=== PATIENT | female | born 1990 | race Asian ===

== ENCOUNTER 2017-09-22 17:27 | Emergency (ER) | payer MEDICAID ==
[2017-09-22 17:33] VITALS: BP 154/106
--- NOTE | 2017-09-22 18:06 | ER Document Report ---
ED General - General Chief Complaint: Facial Swelling Stated Complaint: FACIAL SWELLING Time Seen by Provider: 09/22/17 17:53 Notes: Patient presents with itchy red rash that is on the left side of her forehead right side of her lower facial cheek and right upper extremity. She states that last night she slept on her 90s mattress which she normally does not sleep on it and awoke with this rash. She took Benadryl today. With improvement in the itchiness of her rash. No stridor no tongue or lip swelling and no problems swallowing. No recent fevers or illnesses. TRAVEL OUTSIDE OF THE [place] IN LAST 30 DAYS: No - Related Data Allergies/Adverse Reactions: No Known Allergies Allergy (Verified 09/12/13 12:30) Past Medical History - Social History Smoking Status: Never Smoker Family History: Reviewed & Not Pertinent Patient has suicidal ideation: No Patient has homicidal ideation: No - Past Medical History Cardiac Medical History: Reports: Hx Hypercholesterolemia Neurological Medical History: Reports: Hx Seizures Endocrine Medical History: Reports: Hx Diabetes Mellitus Type 2 - ON METFORMIN NOW Renal/ Medical History: Denies: Hx Peritoneal Dialysis Malignancy Medical History: Reports: Hx Brain Cancer Past Surgical History: Reports: Hx Neurologic Surgery - VNS shunt; Brain tumor Review of Systems - Review of Systems Constitutional: No symptoms reported EENT: No symptoms reported Cardiovascular: No symptoms reported Respiratory: No symptoms reported Gastrointestinal: No symptoms reported Genitourinary: No symptoms reported Female Genitourinary: No symptoms reported Musculoskeletal: No symptoms reported Skin: Rash Hematologic/Lymphatic: No symptoms reported Neurological/Psychological: No symptoms reported Physical Exam - Vital signs Vitals: Temp Pulse Resp BP Pulse Ox 98.2 F 121 H 14 154/106 H 94 09/22/17 17:33 09/22/17 17:33 09/22/17 17:33 09/22/17 17:33 09/22/17 17:33 - General General appearance: Appears well, Alert - HEENT Head: Normocephalic - No petechia and palate normal posterior oropharynx no cervical lymphadenopathy no brandon angina, Atraumatic Eyes: Normal Conjunctiva: Normal Extraocular movements intact: Yes Pupils: PERRL - Respiratory Respiratory status: No respiratory distress Chest status: Nontender Breath sounds: Normal - Cardiovascular Rhythm: Tachycardia Heart sounds: Normal auscultation Murmur: No - Abdominal Inspection: Normal - Skin Skin Temperature: Warm Skin Moisture: Dry - Small areas of urticaria left forehead and right facial cheek and right upper extremity that is blanchable Course - Re-evaluation Re-evalutation: 09/22/17 18:04 Overall, patient is well-appearing in no acute distress. Pulse 108 manual, slightly tachy but not other concerning physical findings. Patient well- appearing no stridor no complaints of swallowing or tongue swelling. Patient symptoms consistent with urticaria. Advised patient to shower when she goes home as well as Benadryl every 6 hours as needed. Return precautions provided. 09/22/17 18:13 - Vital Signs Vital signs: Temp Pulse Resp BP Pulse Ox 98.2 F 121 H 14 154/106 H 94 09/22/17 17:33 09/22/17 17:33 09/22/17 17:33 09/22/17 17:33 09/22/17 17:33 Discharge - Discharge Clinical Impression: Urticaria Condition: Good Disposition: HOME, SELF-CARE Instructions: Acute Urticaria ([facility]) Additional Instructions: Please take [id number] Benadryl 1-2 pills every 6-8 hours as needed for itching. Please seek medical care if symptoms are not improving or worsening over the next 24/48 hours. Referrals: KARLO DEL ROSARIO NP [Primary Care Provider] - Follow up as needed
== END 2017-09-22 18:13 | disposition home or self-care (01) ==
LOC: ER 17:27
DX: L50.9 Urticaria, unspecified (principal); R22.0 Localized swelling, mass and lump, head; E11.9 Type 2 diabetes mellitus without complications; Z79.84 Long term (current) use of oral hypoglycemic drugs
CPT/HCPCS: 99283

== ENCOUNTER → 2019-06-30 | Outpatient (CLI) | payer MEDICAID, MEDICARE ==
--- NOTE | 2019-06-30 10:49 | RADIOLOGY REPORT (SQ) ---
EXAM DESCRIPTION: MRI HEAD COMBO IMAGES COMPLETED DATE/TIME: 06/30/2019 10:12 am REASON FOR STUDY: OTHER SEZURES (G40.89), BRAIN NEOPLASM (C71.9) G40.89 OTHER SEIZURES C71.9 TYESHA SHERMAN NEOPLASM OF BRAIN, UNSPECIFIED COMPARISON: 09/20/2012 TECHNIQUE: Multiplanar imaging includes noncontrasted T1, T2, FLAIR, diffusion with ADC map and post gadolinium contrast T1 sequences. Images stored on PACS. CONTRAST TYPE AND DOSE: 15 mL Prohance. RENAL FUNCTION: Not indicated. ACR Type II contrast agent associated with few, if any, unconfounded cases of NSF LIMITATIONS: None. FINDINGS: Interval development of homogeneously enhancing extra-axial mass left parietal lobe measur ing 15 x 11 x 14 mm AP by transverse by craniocaudal diameter. Similar to adjacent brain on T1 and T 2. No significant edema. No hemorrhage. Old shunt catheter tract right frontal lobe. Chronic gliosis adjacent to the occipital horns. 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 IMPRESSION: Small meningioma left parietal lobe. EVIDENCE OF ACUTE STROKE: NO. TECHNICAL DOCUMENTATION: JOB ID: [id number] 2010 [employer]- All Rights Reserved Reading location - IP/workstation name: [email or web address]
== END ==
LOC: RAD 08:36
PROVIDERS: ATTEND Specialist
DX: G40.89 Other seizures (principal); C71.9 Malignant neoplasm of brain, unspecified; D32.9 Benign neoplasm of meninges, unspecified; I25.2 Old myocardial infarction
CPT/HCPCS: 82565; 70553; A9576